=== PATIENT | female | born 1980 | race Caucasian/White ===

== ENCOUNTER 2020-12-28 21:32 | Emergency (ER) | payer MEDICAID, OTHER | END 2020-12-28 22:30 | disposition left against medical advice (07) | LOC: DL.ED 21:32 | DX: T78.40XA Allergy, unspecified, initial encounter (principal); Z53.21 Procedure and treatment not carried out due to patient leaving prior to being seen by health care provider ==

== ENCOUNTER 2022-04-24 14:23 | Emergency (ER) | payer BC, MEDICAID | END 2022-04-24 16:57 | disposition home or self-care (01) | LOC: DL.ED 14:23 | DX: S93.401A Sprain of unspecified ligament of right ankle, initial encounter (principal); Z72.0 Tobacco use; W01.0XXA Fall on same level from slipping, tripping and stumbling without subsequent striking against object, initial encounter | CPT/HCPCS: 73600-RT; 73620-RT; 99283 ==

== ENCOUNTER 2022-04-29 17:47 | Inpatient (IN) | payer MEDICAID, OTHER ==
[2022-04-29] MEDS ORDERED: Nicotine 21 MG/24 Hr Patch TRDERM ONE (18:17)
[2022-04-29] MEDS ORDERED: MVI, Adult with Vitamin K 10 ML, Thiamine 100 MG, Folic Acid 1 MG in Lactated Ringers 1... IV ONE ×4 (18:17)
[2022-04-29] MEDS ORDERED: LORazepam 2 MG/ML SDV IVPUSH ONE (18:17)
[2022-04-29] MEDS ORDERED: Sodium Chloride 0.9% 10 ML Syringe FLUSH PRN (18:17)
[2022-04-29 18:49] LABS: PTT,PARTIAL THROMBOPLSTIN TIME 24.5 SEC (22.0-34.0)
[2022-04-29 19:00] LABS: ANION GAP 13.9 mEq/L (7-13)
[2022-04-29 19:23] LABS: AMPHETAMINES,URINE NEGATIVE (NEGATIVE); BARBITURATES,URINE NEGATIVE (NEGATIVE); BENZODIAZEPINE,URINE NEGATIVE (NEGATIVE); MDMA (ECSTASY), URINE NEGATIVE (NEGATIVE); METHADONE,URINE NEGATIVE (NEGATIVE); METHAMPHETAMINES,URINE NEGATIVE (NEGATIVE); OPIATES,URINE NEGATIVE (NEGATIVE); OXYCODONE,URINE NEGATIVE (NEGATIVE); PHENCYCLIDINE,URINE NEGATIVE (NEGATIVE); TCA,URINE NEGATIVE (NEGATIVE)
[2022-04-29] MEDS ORDERED: Nitrofurantoin Monohydrate/Macrocrystalline 100 MG Cap PO ONE (19:43)
[2022-04-29] MEDS ORDERED: Polyethylene Glycol 3350 Powder 17 GM Packet PO PRN (20:34)
[2022-04-29] MEDS ORDERED: LORazepam 2 MG/ML SDV IV PRN (20:34)
[2022-04-29] MEDS ORDERED: Ketorolac 30 MG/ML SDV IVPUSH PRN (20:34)
[2022-04-29] MEDS ORDERED: Ibuprofen 600 MG Tab PO PRN (20:34)
[2022-04-29] MEDS ORDERED: Ondansetron 4 MG/2 ML SDV IVPUSH PRN (20:34)
[2022-04-29] MEDS ORDERED: HYDROmorphone 0.5 MG/0.5 ML Syringe IVPUSH PRN (20:34)
[2022-04-29] MEDS ORDERED: Albuterol/Ipratropium 3.0-0.5 MG/3 ML Neb Soln NEB PRN (20:34)
[2022-04-29] MEDS ORDERED: Haloperidol Lactate 5 MG/ML SDV IM PRN (20:34)
[2022-04-29] MEDS ORDERED: Acetaminophen 325 MG Tab PO PRN (20:34)
[2022-04-29] MEDS ORDERED: LORazepam 0.5 MG Tab PO PRN (20:34)
[2022-04-29] MEDS ORDERED: Magnesium Hydroxide 400 MG/5 ML Susp 30 ML Cup PO PRN (20:34)
[2022-04-29] MEDS ORDERED: Metoprolol Tartrate 5 MG/5 ML SDV IVPUSH PRN (20:40)
[2022-04-29] MEDS ORDERED: hydrALAZINE 20 MG/ML SDV IVPUSH PRN (20:40)
[2022-04-29] MEDS ORDERED: Lactated Ringers 1,000 ML IV SCH (20:45)
[2022-04-29] MEDS ORDERED: cefTRIAXone 2 GM in Sodium Chloride 0.9% 100 ML IV SCH (21:00)
[2022-04-29] MEDS: Famotidine 20 MG Tab PO SCH (21:25)
[2022-04-30 07:16] LABS: ANION GAP 11.9 mEq/L (7-13); CHLORIDE,CL 103 mmol/L (98-107); SODIUM,NA 139 mmol/L (136-145)
[2022-04-30 07:18] LABS: ESTIMATED GFR 112 mL/min (>=60)
[2022-04-30] MEDS ORDERED: diphenhydrAMINE 50 MG/ML SDV IVPUSH ONE ×2 (09:00→18:00)
[2022-04-30] MEDS ORDERED: chlordiazePOXIDE 25 MG Cap PO ONE (10:15)
[2022-04-30] MEDS: Famotidine 20 MG Tab PO SCH ×2 (10:30→20:29)
[2022-04-30] MEDS: Saccharomyces Boulardii (Probiotic) 250 MG Cap PO SCH (10:30)
[2022-04-30] MEDS: Multivitamin Tab PO SCH (10:30)
[2022-04-30] MEDS: Folic Acid 1 MG Tab PO SCH (10:30)
[2022-04-30] MEDS: Thiamine 100 MG Tab PO SCH (10:30)
[2022-04-30] MEDS ORDERED: LORAZEPAM IV SCH (15:00)
[2022-04-30] MEDS ORDERED: SODIUM CHLORIDE 0.9% IV SCH (15:00)
[2022-04-30] MEDS: Nicotine 21 MG/24 Hr Patch TRDERM SCH (16:54)
[2022-04-30] MEDS ORDERED: Dexamethasone 4 MG/ML SDV IVPUSH ONE (18:00)
[2022-04-30] MEDS: chlordiazePOXIDE 25 MG Cap PO SCH (20:29)
[2022-04-30] MEDS ORDERED: cefTRIAXone 1 GM in Sodium Chloride 0.9% 100 ML IV SCH (21:00)
[2022-04-30] MEDS ORDERED: cefTRIAXone 1 GM Vial IVPUSH SCH (21:00)
[2022-04-30] MEDS ORDERED: chlordiazePOXIDE 25 MG Cap PO SCH (21:00)
[2022-05-01 07:06] LABS: ANION GAP 14.2 mEq/L (7-13)
[2022-05-01] MEDS: Nicotine 21 MG/24 Hr Patch TRDERM SCH (08:44)
[2022-05-01] MEDS: Multivitamin Tab PO SCH (08:45)
[2022-05-01] MEDS: chlordiazePOXIDE 25 MG Cap PO SCH (08:45)
[2022-05-01] MEDS: Saccharomyces Boulardii (Probiotic) 250 MG Cap PO SCH (08:46)
[2022-05-01] MEDS: Folic Acid 1 MG Tab PO SCH (08:46)
[2022-05-01] MEDS: Thiamine 100 MG Tab PO SCH (08:46)
[2022-05-01] MEDS: Famotidine 20 MG Tab PO SCH (09:31)
[2022-05-01] MEDS ORDERED: chlordiazePOXIDE 25 MG Cap PO SCH (21:00)
== END 2022-05-01 14:20 | disposition left against medical advice (07) | DRG 894 ==
LOC: DL.ED 17:47 → DL.MS 19:46 → DL.ED 19:59 → DL.MS 20:30 → UNDOADMIN 20:30
PROVIDERS: ADMIT Internal Medicine; ATTEND Internal Medicine
DX: F10.231 Alcohol dependence with withdrawal delirium (principal); N39.0 Urinary tract infection, site not specified; I10 Essential (primary) hypertension; E78.5 Hyperlipidemia, unspecified; K76.0 Fatty (change of) liver, not elsewhere classified; F17.210 Nicotine dependence, cigarettes, uncomplicated; F41.9 Anxiety disorder, unspecified; F32.A Depression, unspecified; S93.401A Sprain of unspecified ligament of right ankle, initial encounter; Y90.8 Blood alcohol level of 240 mg/100 ml or more; E78.00 Pure hypercholesterolemia, unspecified; K74.60 Unspecified cirrhosis of liver; Z20.822 Contact with and (suspected) exposure to COVID-19; Z88.0 Allergy status to penicillin; Z91.040 Latex allergy status; Z91.011 Allergy to milk products; B95.1 Streptococcus, group B, as the cause of diseases classified elsewhere; B95.61 Methicillin susceptible Staphylococcus aureus infection as the cause of diseases classified elsewhere
CPT/HCPCS: 36415; 80053; 80305-QW; 80307; 81001; 81025; 82150; 83690; 83735; 84443; 85025; 85610; 85730; 87086; 87088; 87186; 96365; 96366; 96368; 96375; 99285-25; A9270-GY; J0696; J1100; J1200; J2060; J2405; J3411; J3490; J7040; J7120; U0002

== ENCOUNTER 2022-08-16 19:38 | Emergency (ER) | payer MEDICAID ==
[2022-08-16] MEDS ORDERED: Sodium Chloride 0.9% 10 ML Syringe FLUSH PRN (19:41)
[2022-08-16] MEDS ORDERED: Haloperidol Lactate 5 MG/ML SDV IM ONE (19:45)
[2022-08-16] MEDS ORDERED: LORazepam 2 MG/ML SDV IM ONE (19:46)
[2022-08-16] MEDS ORDERED: diphenhydrAMINE 50 MG/ML SDV IM ONE (19:47)
[2022-08-16] MEDS ORDERED: Midazolam 1 MG/ML 2 ML SDV IM ONE (19:49)
[2022-08-16] MEDS ORDERED: MVI, Adult with Vitamin K 10 ML, Folic Acid 1 MG, Thiamine 100 MG in Lactated Ringers 1... IV ONE ×4 (20:11)
[2022-08-16 20:31] LABS: ANION GAP 17.4 mEq/L (7-13); CHLORIDE,CL 105 mmol/L (98-107); SODIUM,NA 140 mmol/L (136-145)
[2022-08-16 20:35] LABS: ESTIMATED GFR 111 mL/min (>=60)
== END 2022-08-16 21:53 | disposition home or self-care (01) ==
LOC: DL.ED 19:38
DX: F10.129 Alcohol abuse with intoxication, unspecified (principal); Z88.0 Allergy status to penicillin; Z91.040 Latex allergy status; Z91.011 Allergy to milk products; Y90.8 Blood alcohol level of 240 mg/100 ml or more
CPT/HCPCS: 36415; 80053; 80307; 83605; 83735; 84443; 85025; 86140; 96365; 96372; 99284; J1200; J1630; J2060; J2250; J3411; J3490; J7120

== ENCOUNTER 2023-12-06 11:20 | Emergency (ER) | payer SELFPAY ==
[2023-12-06] MEDS: Ketorolac 30 MG/ML SDV IVPUSH ONE (11:55)
[2023-12-06] MEDS: Sodium Chloride 0.9% 10 ML Syringe FLUSH PRN (11:58)
[2023-12-06 12:05] LABS: BASOPHILS PERCENT AUTO 0.4 % (0.0-1.0); EOSINOPHILS PERCENT AUTO 0.7 % (1.0-3.0); HEMATOCRIT 40.8 % (37.0-47.0); HEMOGLOBIN 13.5 g/dL (12.0-16.0); LYMPHOCYTES PERCENT AUTO 26.4 % (20.5-50.1); MEAN CORPUSCULAR HEMOGLOBIN 29.9 pg (27.0-34.0); MEAN CORPUSCULAR HGB CONC 33.1 g/dL (33.0-35.0); MEAN CORPUSCULAR VOLUME 90.3 fL (80-100); MONOCYTES PERCENT AUTO 9.6 % (2-8); NEUTROPHILS PERCENT AUTO 62.9 % (42.2-75.2); PLATELET COUNT,PLT 341 10^3/uL (150-450); RED BLOOD CELL COUNT 4.52 10^6/uL (4.2-5.4); WHITE BLOOD CELL COUNT,WBC 13.7 10^3/uL (5.0-10.0)
[2023-12-06 12:09] LABS: HCG QUALITATIVE,SERUM NEGATIVE (NEGATIVE)
[2023-12-06 12:19] LABS: A/G RATIO 0.8; ALANINE AMINOTRANSFERASE,ALT 16 U/L (14-59); ALBUMIN 3.6 g/dL (3.4-5.0); ALKALINE PHOSPHATASE 70 U/L (46-116); AMYLASE 52 U/L (25-115); ANION GAP 16.6 mEq/L (7-13); ASPARTATE AMNIOTRANSFERASE,AST 19 U/L (15-37); BILIRUBIN TOTAL 0.4 mg/dL (0.2-1.0); BLOOD UREA NITROGEN,BUN 10 mg/dL (7-18); BUN/CREATININE RATIO 13.2 (No establ ref range); CALCIUM 9.5 mg/dL (8.5-10.1); CARBON DIOXIDE,CO2 22 mmol/L (21-32); CHLORIDE,CL 101 mmol/L (98-107); CREATININE 0.76 mg/dL (0.55-1.02); EST CRCL DRUG DOSING (CG) 88.43 mL/min; GLUCOSE RANDOM 115 mg/dL (70-99); LIPASE 25 U/L (16-77); MAGNESIUM 1.8 mg/dL (1.8-2.4); POTASSIUM,K 3.6 mmol/L (3.5-5.1); PROTEIN TOTAL,TP 7.9 g/dL (6.4-8.2); SODIUM,NA 136 mmol/L (136-145); TSH ULTRASENSITIVE 0.78 uIU/mL (0.36-3.74)
[2023-12-06 12:20] LABS: C-REACTIVE PROTEIN < 0.50 ng/dL (<=0.50); ESTIMATED GFR 99 mL/min (>=60)
== END 2023-12-06 12:53 | disposition home or self-care (01) ==
LOC: DL.ED 11:20
DX: R07.81 Pleurodynia (principal); F17.210 Nicotine dependence, cigarettes, uncomplicated; Z88.0 Allergy status to penicillin; Z91.040 Latex allergy status; Z91.011 Allergy to milk products
CPT/HCPCS: 36415; 80053; 82150; 83690; 83735; 84443; 84484; 84703; 85025; 86140; 93005; 96374; 99285; J1885; J3490

== ENCOUNTER 2024-04-17 22:32 | Emergency (ER) | payer SELFPAY ==
[2024-04-17 23:03] LABS: BASOPHILS PERCENT AUTO 0.5 % (0.0-1.0); EOSINOPHILS PERCENT AUTO 1.2 % (1.0-3.0); HEMATOCRIT 39.2 % (37.0-47.0); HEMOGLOBIN 13.2 g/dL (12.0-16.0); MEAN CORPUSCULAR HEMOGLOBIN 30.2 pg (27.0-34.0); MEAN CORPUSCULAR HGB CONC 33.7 g/dL (33.0-35.0); MEAN CORPUSCULAR VOLUME 89.7 fL (80-100); NEUTROPHILS PERCENT AUTO 54.3 % (42.2-75.2); PLATELET COUNT,PLT 337 10^3/uL (150-450); RED BLOOD CELL COUNT 4.37 10^6/uL (4.2-5.4); WHITE BLOOD CELL COUNT,WBC 9.8 10^3/uL (5.0-10.0)
[2024-04-17 23:23] LABS: PROTHROMBIN TIME 10.2 SEC (9.0-12.0)
[2024-04-17 23:29] LABS: A/G RATIO 0.9; ACETAMINOPHEN 0 ug/mL (10-30 (Therapeutic)); ALANINE AMINOTRANSFERASE,ALT 17 U/L (14-59); ALBUMIN 3.5 g/dL (3.4-5.0); ALKALINE PHOSPHATASE 72 U/L (46-116); ANION GAP 15.6 mEq/L (7-13); ASPARTATE AMNIOTRANSFERASE,AST 24 U/L (15-37); BILIRUBIN TOTAL 0.4 mg/dL (0.2-1.0); BLOOD UREA NITROGEN,BUN 9 mg/dL (7-18); BUN/CREATININE RATIO 11.1 (No establ ref range); CALCIUM 9.3 mg/dL (8.5-10.1); CARBON DIOXIDE,CO2 22 mmol/L (21-32); CHLORIDE,CL 99 mmol/L (98-107); CREATININE 0.81 mg/dL (0.55-1.02); ESTIMATED GFR 91 mL/min (>=60); ETHANOL BLOOD MEDICAL < 3 mg/dL (0); GLUCOSE RANDOM 133 mg/dL (70-99); LIPASE 30 U/L (16-77); MAGNESIUM 1.9 mg/dL (1.8-2.4); POTASSIUM,K 3.6 mmol/L (3.5-5.1); PROTEIN TOTAL,TP 7.3 g/dL (6.4-8.2); SODIUM,NA 133 mmol/L (136-145); TSH ULTRASENSITIVE 0.79 uIU/mL (0.36-3.74)
[2024-04-18 00:48] LABS: APPEARANCE,URINE SLIGHTLY CLOUDY (CLEAR); BILIRUBIN,URINE NEGATIVE (NEGATIVE); COLOR,URINE YELLOW (YELLOW); GLUCOSE,URINE NEGATIVE (NEGATIVE); KETONES,URINE 15 (NEGATIVE); LEUKOCYTE ESTERASE,URINE SMALL (NEGATIVE); NITRITE,URINE NEGATIVE (NEGATIVE); OCCULT BLOOD,URINE TRACE-INTACT (NEGATIVE); PH,URINE 5.5 (5.0-9.0); PROTEIN,URINE NEGATIVE (NEGATIVE); UROBILINOGEN,URINE 0.2 mg/dL (0.2-1.0)
[2024-04-18 00:52] LABS: AMPHETAMINES,URINE NEGATIVE (NEGATIVE); BARBITURATES,URINE NEGATIVE (NEGATIVE); BENZODIAZEPINE,URINE NEGATIVE (NEGATIVE); MDMA (ECSTASY), URINE NEGATIVE (NEGATIVE); METHADONE,URINE NEGATIVE (NEGATIVE); METHAMPHETAMINES,URINE NEGATIVE (NEGATIVE); OPIATES,URINE NEGATIVE (NEGATIVE); OXYCODONE,URINE NEGATIVE (NEGATIVE); PHENCYCLIDINE,URINE NEGATIVE (NEGATIVE); TCA,URINE NEGATIVE (NEGATIVE)
[2024-04-18 01:00] LABS: BACTERIA,URINE FEW /HPF (0-FEW/HPF); EPITHELIAL CELLS,URINE FEW /HPF (NOT SEEN); MUCUS,URINE FEW /LPF (NOT SEEN); RBC,URINE 0-5 /HPF (0-5); TRICHOMONAS,URINE PRESENT /HPF (NOT SEEN); YEAST,URINE RARE /HPF (NOT SEEN)
== END 2024-04-18 01:58 | disposition home or self-care (01) ==
LOC: DL.ED 22:32
DX: R00.2 Palpitations (principal); F41.0 Panic disorder [episodic paroxysmal anxiety]; N39.0 Urinary tract infection, site not specified; A59.9 Trichomoniasis, unspecified; E87.1 Hypo-osmolality and hyponatremia; F17.200 Nicotine dependence, unspecified, uncomplicated; Z88.0 Allergy status to penicillin; Z91.040 Latex allergy status; Z91.011 Allergy to milk products
CPT/HCPCS: 36415; 71045; 80053; 80143; 80179; 80305-QW; 80307; 81001; 81025; 83690; 83735; 84443; 84484; 85025; 85610; 87086; 93005; 93010; 99284; 99285